=== PATIENT | female | born 1975 | race African-American/Black ===

== ENCOUNTER → 2016-10-14 | Outpatient (CLI) | payer BC ==
[~2016-10-14] MED LIST: PRED50TA PO
--- NOTE | 2016-10-14 17:07 | MAMMOGRAPHY REPORT ---
BILATERAL DIGITAL DIAGNOSTIC MAMMOGRAM TOMOSYNTHESIS WITH CAD AND TARGETED RIGHT ULTRASOUND: 10/14/19 17 CLINICAL HISTORY: The patient reports a palpable lump in her right breast which has been present for approximately 11 years; the patient reports it may be smaller since she first felt it. She also re ports her physician felt another palpable right breast lump during a routine physical exam. The pat emily has a family history of breast cancer, with her mother diagnosed at approximately age 48. TECHNIQUE: Breast tomosynthesis in addition to standard 2D mammography was performed. Current study was also evaluated with a Computer Aided Detection (CAD) system. Bilateral CC and MLO 2-D and avery synthesis images and spot magnification right cc and ML views were obtained. COMPARISON: Comparison is made to exam dated: 09/23/2016 ultrasound. BREAST COMPOSITION: The tissue of both breasts is extremely dense, which lowers the sensitivity of mammography. FINDINGS: Bricelyn markers анна the site of the palpable lumps in the right upper outer quadrant an d right breast at approximately 8:00. No suspicious masses or other suspicious mammographic abnorma lities are noted in these regions. There is a small 2 mm cluster of faint amorphous calcifications in the right medial breast at 3:00. The calcifications are indeterminate and stereotactic biopsy is recommended for further evaluation. The remainder of both breasts are negative, without suspicious masses, calcifications, or areas of architectural distortion noted. A few other scattered punctate benign-appearing calcifications are noted bilaterally. Targeted ultrasound was performed of the area of the palpable lump pointed out by the patient which she has had for years. In the right breast at 6:30, 2 cm from the nipple, there is a focal hypoecho ic region which measures 5 x 2 x 3 mm, which is stable to less prominent compared to the Oct 2012 trasound exam, and during real-time imaging has the appearance of normal fibroglandular tissue witho ut a discrete mass seen. Given the long-term stability, the finding is felt to be benign and repres ent normal fibroglandular tissue. Targeted ultrasound was performed of the area of the palpable lump felt by the patient's physician, in the right breast at 11:00 approximately 3 cm from the nipple. At this site there is an oval circ umscribed mass which is predominately anechoic and contains an internal echogenic septation versus e chogenic debris anteriorly. The mass measures 4 x 5 x 3 mm. This likely represents a complicated c yst. The options of short follow-up versus aspiration were discussed with the patient, and she woul d prefer aspiration. IMPRESSION: ACR BI-RADS CATEGORY 4: SUSPICIOUS, TARGETED ULTRASOUND ACR BI-RADS CATEGORY 4: SUSPICI OUS 1. Small 2 mm cluster of faint calcifications in the right 3:00 breast. The calcifications are ind eterminate and stereotactic biopsy is recommended for further evaluation, especially given the famil y history breast cancer. 2. No suspicious mass or other suspicious abnormality is seen at the site of the palpable lump in t he right breast at 630. Given that the lump has been palpable for at least 11 years and is unchange d clinically, it is felt to be benign and represent normal fibroglandular tissue. Recommend clinica l follow-up. 3. Complicated cyst measuring 5 mm in the right breast at 11:00, at the site of the other palpable lump felt by the patient's physician. Recommend ultrasound-guided aspiration for further evaluation . A phone call was made to the physician's office to confirm faxed results were received. The patient has been verbally notified of the results. The patient tentatively scheduled the procedures before leaving the department. Approximately 10% of breast cancers are not detected with mammography. A negative mammographic repor t should not delay biopsy if a clinically suggestive mass is present. Jamee Bianchi M.D. ah/:10/14/2016 15:34:20 Battery Charger Tester: Isis Norman, [facility] letter sent: Abnormal 4/5 BI-RADS Code: ACR BI-RADS Category 4: Suspicious Ultrasound BI-RADS: ACR BI-RADS Category 4: Suspic ious
== END | disposition home or self-care (01) ==
LOC: C.MAMM 13:54
PROVIDERS: ATTEND Family Medicine
DX: N63 Unspecified lump in breast (principal); Z80.3 Family history of malignant neoplasm of breast; R92.1 Mammographic calcification found on diagnostic imaging of breast; N60.01 Solitary cyst of right breast

== ENCOUNTER → 2016-10-26 | Outpatient (CLI) | payer BC ==
--- NOTE | 2016-10-26 09:04 | Discharge Instructions ---
Discharge Instructions Procedure Procedure Date: Oct 26, 2016. Reason for visit: Right microcalcifications Discharge Discharge Date: Oct 26, 2016. Discharge Diagnosis: post right breast stereotactic guided biopsy and cyst aspiration Instructions Activity Recommendations: Additional Limitations (see below) Return to School/Work: no limitations Recommended Home Diet: No Limitations Provider Instructions: ACTIVITY RECOMMENDATIONS: * No lifting, pushing, pulling or exercising the affected side for three days. RETURN TO SCHOOL/WORK: * You may return to work/school after the procedure, but do not perform any strenuous activities for 24 to 48 hours. MEDICATIONS: * Tylenol (two 325 mg) every four to six hours if needed for mild pain (if not allergic to Tylenol). DIET: * Resume previous diet. SPECIAL CARE INSTRUCTIONS: * Keep biopsy site dry for 24 hours. May shower after 24 hours, but do not soak (bathe) incision. * May remove Tegaderm (plastic patch) tomorrow AFTER showering. * Leave the steri-strips on for one week. Allow the steri-strips to fall off by themselves. If not off after one week, you may remove them. You may place a Bandaid crosswise over the strips, if desired. * Apply ice 10 minutes on and 10 minutes off as needed. * Wear a bra at bedtime to sleep more comfortably for 2-3 days. * Your referring physician should have the results after approximately 5 to 7 business days. * Call for unusual bleeding, fever, drainage, etc or if you have any questions call [phone] during normal business hours or after hours call Dr Deleon, . FOLLOW UP VISIT: Follow-up with Referring Physician as scheduled. Felicia Agarwal Recommendations: Call your doctor if: * Temperature above 101 degrees * Pain not relieved by pain medicine ordered * There is increased drainage or redness from any incision * You have any unanswered questions or concerns. Your Doctors Instructions noted above were prepared by provider Danielle Deleon. Patient Signature Section: Patient Instructions Signature Page Michael Garcia Patient (or Guardian) Signature/Date: I have read and understand the instructions given to me by my caregivers. Caregiver/RN/Doctor Signature/Date: The above-named patient and/or guardian has received patient instructions on this date. + Original Patient Signature Page (only) stays with chart. Please make copy for patient.
--- NOTE | 2016-10-26 13:31 | MAMMOGRAPHY REPORT ---
ASPIRATION RIGHT BREAST: 10/26/2016 CLINICAL HISTORY: Probable complicated cyst in the 11:00 right breast. Patient presents for ultraso und-guided cyst aspiration. COMPARISON: Comparison is made to exams dated: 09/23/2016 ultrasound, 10/14/2016 mammogram, 10/14/2016 ultrasound, and 10/26/2016 stereotactic biopsy - [facility]. PATIENT CONSENT: After explaining the risks, benefits and alternatives of the procedure to the patie nt, informed consent was obtained verbally and in writing. Specific risks include: bleeding, infecti on and puncture of adjacent structure. A time out was preformed in the right breast was agreed as th e site for cyst aspiration. PROCEDURE DESCRIPTION: The hypoechoic cystic appearing mass in the 11:00 right breast was identified . 1% buffered lidocaine without epinephrine was administered subcutaneously and intraparenchymally a s local anesthesia. A 22 gauge needle was advanced to the site of the mass. Aspiration was preformed and the cyst resolved completely. The fluid was rinsed in CytoLyt and sent to the pathology departm ent in an appropriately labeled container. Postprocedure right CC and ML views were obtained after cyst aspiration and stereotactic biopsy. No significant postbiopsy hematoma is identified in the 11:00 axis, at the location of the cyst aspira tion. IMPRESSION: ASPIRATION Status post ultrasound-guided cyst aspiration to resolution of a cystic mass with a few thin interna l septations in the 11:00 breast. The patient will receive notification of the cytology results from her referring physician. At the time of cyst aspiration ultrasound was also performed in the area of palpable concern within the 7:00 right breast, 2 cm from the nipple, and a 5 mm hypoechoic mass with indistinct borders is a gain identified. Given the palpable solid nature of this mass and indistinct borders, definitive ch aracterization with ultrasound guided core biopsy is recommended. The patient tentatively scheduled this procedure prior to leaving our department. Danielle Deleon M.D. ay/:10/26/2016 09:54:07 Meeting Planner: Isis Norman, [facility]
--- NOTE | 2016-10-26 13:31 | MAMMOGRAPHY REPORT ---
STEREOTACTIC GUIDED BIOPSY RIGHT BREAST: 10/26/2016 CLINICAL HISTORY: Indeterminate clustered microcalcifications in the 3:00 right breast. COMPARISON: Comparison is made to exams dated: 10/14/2016 ultrasound, 10/14/2016 mammogram - [facility], and 09/23/2016 ultrasound. PATIENT CONSENT: After explaining the risks, benefits and alternatives of the procedure to the patie nt, informed consent was obtained both verbally and in writing. Specific risks include: Bleeding, i nfection, puncture of adjacent structure, nontarget biopsy, sampling error, metal allergy and medica tion reaction. PROCEDURE DESCRIPTION: A time-out was performed and the right breast was confirmed as the site of bi opsy. The patient was placed prone on the stereotactic biopsy table and the breast was placed in med iallateral compression. A world designer image was obtained that demonstrated the clustered microcalcificati ons in question. They are amenable to sterotactic biopsy. Then +15 and -15 stereo pair images wer e obtained. The calcifications were targeted utilizing the coordinates obtained by the computer. Th e skin was prepped with Betadine. 1% Lidocaine with and without epinipherine was administered as loc al anesthesia. A small skin incision was made. Through the incision, the needle was inserted to the depth determined by the computer. 9 samples were obtained using a [employer] 9-gauge vacuum- assisted biopsy device. The specimen radiograph demonstrated the cluster of tax representative microcalc ifications, therefore, a metallic marker was placed at the biopsy site. There was no immediate compl ication. Hemostasis was achieved after several minutes of manual compression. The samples were sent to pathology in 2 appropriately labeled containers, as the cluster of calcifications were out and placed in a container labeled with calcifications. All of the samples were obtained from t he same single biopsy site. Postprocedure CC and ML views of the right breast demonstrate a new double-shaped metallic biopsy ma rker and no significant hematoma in the 3:00 middle one third of the breast at the site of the biops ied clustered microcalcifications in question. IMPRESSION: STEREOTACTIC GUIDED BIOPSY Status post right breast stereotactic guided biopsy and also right breast ultrasound guided cyst asp iration. The patient will receive notification of the biopsy results from her referring physician. After the ultrasound-guided cyst aspiration in the 11:00 right breast, the palpable mass in the 7:00 right breast was reevaluated with ultrasound. Given the solid, palpable nature and indistinct bord ers this mass is considered indeterminate. Ultrasound-guided core biopsy is recommended. The patie nt scheduled this additional biopsy prior to leaving the department. Danielle Deleon M.D. ay/:10/26/2016 09:56:50 Attending Technologist: Tamiko ODELL)(Juan), [facility] Lean Process Deployment Consultant: Isis Norman, [facility]
--- NOTE | 2016-10-26 13:33 | MAMMOGRAPHY REPORT ---
UNILATERAL RIGHT DIGITAL DIAGNOSTIC MAMMOGRAM: 10/26/2016 CLINICAL HISTORY: 41-year-old female with a probable complicated cyst in the 11:00 right breast and indeterminate clustered microcalcifications in the 3:00 right breast. Status post stereotactic guid ed biopsy and cyst aspiration. Please refer to the report from right breast stereotactic biopsy performed at the same time for full detail. IMPRESSION: POST PROCEDURE IMAGING FOR MARKER PLACEMENT Please refer to the report from right breast stereotactic biopsy performed at the same time for full detail. Approximately 10% of breast cancers are not detected with mammography. A negative mammographic repor t should not delay biopsy if a clinically suggestive mass is present. Danielle Deleon M.D. ay/:10/26/2016 09:35:24 Rap Artist: Isis Norman, [facility] BI-RADS Code: Post Procedure Imaging For Marker Placement
== END | disposition home or self-care (01) ==
LOC: C.MAMM 07:46
PROVIDERS: ATTEND Family Medicine
DX: N60.21 Fibroadenosis of right breast (principal); R92.0 Mammographic microcalcification found on diagnostic imaging of breast; N60.01 Solitary cyst of right breast; N63 Unspecified lump in breast

== ENCOUNTER → 2016-10-29 | Outpatient (CLI) | payer BC ==
--- NOTE | 2016-10-29 15:06 | Discharge Instructions ---
Discharge Instructions Procedure Procedure Date: Oct 29, 2016. Reason for visit: Rt Mass. Discharge Discharge Date: Oct 29, 2016. Discharge Diagnosis: post right breast ultrasound guided core biopsy Instructions Activity Recommendations: Additional Limitations (see below) Return to School/Work: no limitations Recommended Home Diet: No Limitations Provider Instructions: ACTIVITY RECOMMENDATIONS: * No lifting, pushing, pulling or exercising the affected side for three days. RETURN TO SCHOOL/WORK: * You may return to work/school after the procedure, but do not perform any strenuous activities for 24 to 48 hours. MEDICATIONS: * Tylenol (two 325 mg) every four to six hours if needed for mild pain (if not allergic to Tylenol). DIET: * Resume previous diet. SPECIAL CARE INSTRUCTIONS: * Keep biopsy site dry for 24 hours. May shower after 24 hours, but do not soak (bathe) incision. * May remove Tegaderm (plastic patch) tomorrow AFTER showering. * Leave the steri-strips on for one week. Allow the steri-strips to fall off by themselves. If not off after one week, you may remove them. You may place a Bandaid crosswise over the strips, if desired. * Apply ice 10 minutes on and 10 minutes off as needed. * Wear a bra at bedtime to sleep more comfortably for 2-3 days. * Your referring physician should have the results after approximately 5 to 7 business days. * Call for unusual bleeding, fever, drainage, etc or if you have any questions call [phone] during normal business hours or after hours call Dr Deleon, . FOLLOW UP VISIT: Follow-up with Referring Physician as scheduled. [facility] Recommendations: Call your doctor if: * Temperature above 101 degrees * Pain not relieved by pain medicine ordered * There is increased drainage or redness from any incision * You have any unanswered questions or concerns. Your Doctors Instructions noted above were prepared by provider Danielle Deleon. Patient Signature Section: Patient Instructions Signature Page Michael Garcia Patient (or Guardian) Signature/Date: I have read and understand the instructions given to me by my caregivers. Caregiver/RN/Doctor Signature/Date: The above-named patient and/or guardian has received patient instructions on this date. + Original Patient Signature Page (only) stays with chart. Please make copy for patient.
--- NOTE | 2016-10-29 15:32 | MAMMOGRAPHY REPORT ---
UNILATERAL RIGHT DIGITAL DIAGNOSTIC MAMMOGRAM TOMOSYNTHESIS: 10/29/2016 CLINICAL HISTORY: Status post ultrasound-guided core biopsy of a small palpable hypoechoic mass with indistinct borders in the subdermal 7:00 right breast. Please refer to the report from right breast ultrasound guided core biopsy performed at the same isaac e for full detail. IMPRESSION: POST PROCEDURE IMAGING FOR MARKER PLACEMENT Please refer to the report from right breast ultrasound guided core biopsy performed at the same isaac e for full detail. Approximately 10% of breast cancers are not detected with mammography. A negative mammographic repor t should not delay biopsy if a clinically suggestive mass is present. Danielle Deleon M.D. ay/:10/29/2016 15:13:52 Reo Asset Manager: Isis Norman, [facility] BI-RADS Code: Post Procedure Imaging For Marker Placement
--- NOTE | 2016-10-29 16:42 | MAMMOGRAPHY REPORT ---
ULTRASOUND GUIDED BIOPSY RIGHT BREAST: 10/29/2016 CLINICAL HISTORY: 41-year-old woman who presents for biopsy of a palpable subdermal hypoechoic mass in the 7:00 right breast. COMPARISON: Comparison is made to exams dated: 10/14/2016 ultrasound, 10/14/2016 mammogram - [facility], 09/23/2016 ultrasound, 10/26/2016 stereotactic biopsy, 10/26/2016 mammogram, and 10/26 aspiration - [facility]. PATIENT CONSENT: The procedure, risks and benefits were discussed with the patient and informed writ ten consent was obtained. Specific risks to this procedure include: bleeding, infection, puncture of adjacent structure, nontarget biopsy, sampling error and medication reaction. PROCEDURE DESCRIPTION: A time out was performed and the right breast was agreed as the site of biops y. The skin was prepped and draped in the usual sterile fashion. The palpable subdermal hypoechoic m ass in the 7:00 right breast was chosen as the target for biopsy. Subcutaneous and intraparenchymal 1% buffered lidocaine without epinephrine was administered as local anesthesia. A skin incision was made. Through the incision, 3 samples were taken with a 14 gauge Achieve biopsy device. A ribbon-sh aped metallic marker was placed at the biopsy site. Hemostasis was achieved after manual compression . The patient tolerated the procedure well and there was no immediate complication. The samples wer e sent to the pathology department in an appropriately labeled container. Postprocedure right CC and MLO views were obtained. There is a new ribbon-shaped metallic biopsy ma rker and no definite hematoma in the 7:00 right breast, at the site of the biopsied mass seen on ult rasound. A dumbbell shaped metallic biopsy marker is again seen in the 3:00 right breast at the sit e of benign stereotactic biopsy. IMPRESSION: ULTRASOUND GUIDED BIOPSY Status post ultrasound-guided core biopsy of a solid subdermal palpable mass in the 7:00 right breas t, with ribbon shaped metallic biopsy marker placed at the site. The patient will receive notification of the biopsy results from her referring physician. Danielle Deleon M.D. ay/:10/29/2016 15:52:47 Excel Expert: Isis Norman, [facility]
== END | disposition home or self-care (01) ==
LOC: C.MAMM 13:57
PROVIDERS: ATTEND Family Medicine
DX: N60.11 Diffuse cystic mastopathy of right breast (principal)

== ENCOUNTER 2016-11-09 01:56 | Emergency (ER) | payer BC ==
[~2016-11-09] VITALS: Ht 149.9 cm; Wt 47.7 kg
[2016-11-09 02:00] VITALS: TEMP 36.6; Ht 149.9 cm; Wt 47.7 kg
[2016-11-09] MEDS ORDERED: ALBUT/IPRATROP 3MG/0.5MG NEB 3 ML VIAL ONE (02:08)
[2016-11-09] MEDS ORDERED: ALBUTEROL HFA 8 GM INHALER INH STA (02:10)
[2016-11-09] MEDS ORDERED: ALBUT/IPRATROP 3MG/0.5MG NEB 3 ML VIAL INH STA (02:10)
[2016-11-09 02:12] VITALS: O2SAT 96
[2016-11-09] MEDS ORDERED: PRED50TA PO (03:09)
[2016-11-09 03:19] VITALS: BP 117/88; PULSE 86; O2SAT 99
--- NOTE | 2016-11-09 04:17 | EMERGENCY ROOM VISIT NOTE ---
History First contact with patient: 02:03 Chief Complaint: SHORTNESS OF BREATH Stated Complaint: SHORTNESS OF BREATH Nursing Triage Summary: hx asthma. started 11/07 after playing with a rabbit all day. pt has been using her inhaler every 4 hours since 11/07. tonight 11/08 she had to use it every 2 hours and still cannot catch her breath. pt does not use nebulizers at home. started with chest cold. no fevers. History of Present Illness The patient is a 41 year old female who presents to the Emergency Room with complaints of cough and wheezing for the past day. Patient tried her inhaler with no relief of symptoms. She had a cold a few days ago but feels better from this. Patient has asthma and states she feels as if her asthma is flaring. Patient denies chest pain, fever, chills, productive cough, abdominal pain, headache, neck stiffness, sore throat. She is tolerating by mouth fluids and food. She has never been hospitalized for her asthma. Review of Systems See HPI for pertinent positives & negatives. A total of 10 systems reviewed and were otherwise negative. Past Medical/Surgical History Asthma Social History Smoking Status: Never Smoker Smokeless Tobacco Use: No Alcohol Use: none Drug Use: none Housing Status: lives with family Current/Historical Medications Scheduled Prednisone (Prednisone), 50 MG PO DAILY Allergies Coded Allergies: No Known Allergies (Unverified , 11/09/16) Physical Exam Vital Signs Date Time Temp Pulse Resp B/P Pulse Ox O2 Delivery O2 Flow Rate FiO2 11/09/16 03:19 86 18 117/88 99 11/09/16 03:00 86 18 117/88 99 Room Air 11/09/16 02:12 96 Room Air 11/09/16 02:06 96 Room Air 11/09/16 02:00 36.6 96 22 129/87 96 Room Air Pain Rating (0-10): 0 Physical Exam VITALS: Vitals are noted on the nurse's note and reviewed by myself. Vital signs stable. GENERAL: Pleasant female without a wheeze, in no acute distress, nondiaphoretic , well-developed well-nourished. SKIN: The skin was without rashes, erythema, edema, or bruising. There is no tenting of the skin. Capillary reflex less than 2 seconds. HEAD: Normocephalic atraumatic. EARS: External auditory canals clear, tympanic membranes pearly hernández without erythema or effusion bilaterally. EYES: Pupils equal round and reactive to light and accommodation. Conjunctivae without injection, sclerae without icterus. Extraocular movements intact. NOSE: Patent, turbinates without inflammation or discharge. No sinus tenderness. MOUTH: Mucous membranes moist. . Pharynx without erythema or exudate. Uvula midline. Airway patent. Tongue does not deviate. NECK: Supple without nuchal rigidity. No lymphadenopathy. No thyromegaly. Cervical spine is nontender. No JVD. HEART: Regular rate and rhythm without murmurs gallops or rubs. LUNGS: Diffuse inspiratory and end expiratory wheezes, without rales or rhonchi. No dullness to percussion. No retractions or accessory muscle use. ABDOMEN: Positive bowel sounds x 4. Normal tympanic percussion. Soft, nontender, without masses or organomegaly. Johnson sign negative. No guarding or rebound tenderness. MUSCULOSKELETAL: No muscle atrophy, erythema, or edema noted. NEURO: Patient was alert and oriented to person place and time. Normal sensation to light and sharp touch. No focal neurological deficits. Medical Decision & Procedures Medications Administered Medications (Trade) Dose Ordered Sig/Marv Route Start Time Stop Time Status Last Admin Dose Admin Albuterol/ Ipratropium (Duoneb) 3 ml NOW STAT INH 11/09/16 02:10 11/09/16 02:12 DC 11/09/16 02:13 3 ML Prednisone (PredniSONE TAB) 60 mg NOW STAT PO 11/09/16 02:10 11/09/16 02:12 DC 11/09/16 02:27 60 MG Albuterol (Ventolin Hfa Inhaler) 2 puffs ONE STAT INH 11/09/16 02:10 11/09/16 02:12 DC 11/09/16 02:27 60 PUFFS ED Course Prior records/ancillary studies reviewed. Triage Nursing notes reviewed. Additional history obtained from the family. The patient's history was concerning for respiratory difficulties. Differential diagnosis: Etiologies such as infections, reactive airway disease, pneumonia, pneumothorax , COPD, CHF, cardiac ischemia, pulmonary embolism, musculoskeletal, gastrointestinal, as well as others were entertained. Physical examination: As above. ER treatment provided: Nebulizer, prednisone On reassessment the patient felt better. Diagnostic interpretation by me: Deferred This appears to be consistent with asthma exacerbation. Patient felt much better after being medicated as above. She was reassessed and lungs are clear to auscultation. Patient felt comfortable to go home. She was given a short course of steroids and advised to follow-up family care in a few days or here in the ER sooner for chest pain, difficulty breathing, fevers, worsening signs or symptoms or as needed. By the evaluation outlined above emergent etiologies such as CHF, cardiac ischemia, pulmonary embolism, pneumonia, pneumothorax, musculoskeletal, serious bacterial infections, as well as others were deemed relatively unlikely. The pt informed about the findings as listed above. All questions were answered and pleased with the treatment. Return instructions were outlined and the patient was discharged in stable condition. Outpatient prescription management: Prednisone Referral: The patient was referred back to their primary care physician for follow-up in 2 to 3 days for a recheck of the current condition. Medical Decision As above Impression Primary Impression: Asthma exacerbation Departure Information Dispostion Home / Self-Care Condition GOOD Prescriptions Prednisone (Prednisone) 50 Mg Tab 50 MG PO DAILY for 4 Days, #4 TAB Prov: Kat Barajas .CARLOS 11/09/16 Forms HOME CARE DOCUMENTATION FORM, IMPORTANT VISIT INFORMATION Patient Instructions Asthma - [facility], [facility] Additional Instructions Albuterol Inhaler: Take 2 puffs four times daily for five days, then as needed. Prednisone 50mg: Once daily until the prescription is finished. It is best to take this earlier in the day as some patients note occasional difficulty falling asleep when taken in the late evening. Acetaminophen(Tylenol) may be used for fever or pain. Use 1000mg every six hours as needed. Avoid using more than 3000mg in a 24 hour period. (AND/OR) Ibuprofen(Motrin, Advil) may be used for fever or pain. Use 600mg every six hours as needed. Take with food. Avoid using more than 2400mg in a 24 hour period. Do not use 2400mg per day for more than three consecutive days without physician direction. Prolonged inappropriate use can lead to stomach upset or ulcers. Rest and drink plenty of fluids. Avoid smoke/smoking, fumes, dust, or any triggers in the past that may have affected your breathing. Continue current medications. Return to the ER for chest pain, difficulty breathing, fevers, vomiting, worsening of your condition, or as needed. Follow up with your primary physician this week for a recheck of your current condition.
== END 2016-11-09 03:22 | disposition home or self-care (01) ==
LOC: C.EDB 01:57
DX: J45.901 Unspecified asthma with (acute) exacerbation (principal)

== ENCOUNTER → 2017-08-27 | Outpatient (CLI) | payer BC ==
[2017-08-27 09:39] LABS: HEMATOCRIT 35.3 % (37-47); MEAN CELL VOLUME 88.5 fL (80-100); MEAN CORPUSCULAR HEMOGLOBIN 28.3 pg (25-34); MEAN PLATELET VOLUME 10.4 fL (7.4-10.4); PLATELET COUNT 309 K/uL (130-400); RED BLOOD COUNT 3.99 M/uL (4.2-5.4); WHITE BLOOD COUNT 3.33 K/uL (4.8-10.8)
[2017-08-27 10:28] LABS: RUBELLA SCREEN IgG (AT CCH) IMMUNE (IMMUNE)
== END | disposition home or self-care (01) ==
LOC: C.LAB 08:14
PROVIDERS: ATTEND Obstetrics & Gynecology Reproductive Endocrinology
DX: Z31.41 Encounter for fertility testing (principal); Z01.83 Encounter for blood typing; Z11.59 Encounter for screening for other viral diseases; Z11.3 Encounter for screening for infections with a predominantly sexual mode of transmission; Z11.4 Encounter for screening for human immunodeficiency virus [HIV]; Z13.0 Encounter for screening for diseases of the blood and blood-forming organs and certain disorders involving the immune mechanism; Z13.21 Encounter for screening for nutritional disorder

== ENCOUNTER → 2017-09-27 | Outpatient (CLI) | payer BC | END | disposition home or self-care (01) | LOC: C.PAPS 14:44 | PROVIDERS: ATTEND Obstetrics & Gynecology | DX: Z01.419 Encounter for gynecological examination (general) (routine) without abnormal findings (principal) ==

== ENCOUNTER → 2017-11-02 | Outpatient (CLI) | payer BC ==
--- NOTE | 2017-11-03 15:22 | MAMMOGRAPHY REPORT ---
BILATERAL DIGITAL SCREENING MAMMOGRAM TOMOSYNTHESIS WITH CAD: 11/02/2017 CLINICAL HISTORY: Routine screening. Patient has no complaints. TECHNIQUE: Breast tomosynthesis in addition to standard 2D mammography was performed. Current study was also evaluated with a Computer Aided Detection (CAD) system. COMPARISON: Comparison is made to exams dated: 10/14/2016 mammogram - [facility], ultrasound, 10/29/2016 mammogram, 10/29/2016 ultrasound biopsy, 10/26/2016 mammogram, and 10/26/2016 aspiration - [facility]. BREAST COMPOSITION: The tissue of both breasts is extremely dense, which lowers the sensitivity of m ammography. FINDINGS: A linear scar marker overlies the upper outer far posterior left breast, denoting an area of recent benign excision. There are 2 stable metallic biopsy marker clips in the inferior right [place] ast. No obvious new mass, architectural distortion or cluster of suspicious microcalcifications is s een. IMPRESSION: ACR BI-RADS CATEGORY 1: NEGATIVE There is no mammographic evidence of malignancy. A 1 year screening mammogram is recommended. The pa tient will receive written notification of the results. Approximately 10% of breast cancers are not detected with mammography. A negative mammographic report should not delay biopsy if a clinically suggestive mass is present. Danielle Deleon M.D. ay/:11/02/2017 15:16:17 Employee Health Nurse: Ramandeep ODELL)(Juan), [facility] letter sent: Normal 1/2 BI-RADS Code: ACR BI-RADS Category 1: Negative
== END | disposition home or self-care (01) ==
LOC: C.MAMM 14:37
PROVIDERS: ATTEND Family Medicine
DX: Z12.31 Encounter for screening mammogram for malignant neoplasm of breast (principal)